=== PATIENT | male | born 1960 | race Caucasian/White ===

== ENCOUNTER 2025-02-01 08:15 | Day surgery (SDC) | payer MEDICARE, BC, SELFPAY ==
[2025-01-29 14:11] VITALS: BMI 30.1
[2025-02-01 08:36] VITALS: BP 163/97; PULSE 69; RESP 16; TEMP 36.1; O2SAT 98; BMI 29.8
[2025-02-01] MEDS: RINGERS LACTATED 500 ML 500 ML 20 ML IV (10:30)
[2025-02-01 10:44] VITALS: BP 143/72; PULSE 67; RESP 7; TEMP 36.8; O2SAT 96
[2025-02-01 10:54] VITALS: BP 131/68; PULSE 64; RESP 11; O2SAT 96
[2025-02-01 11:04] VITALS: BP 134/71; PULSE 62; RESP 16; O2SAT 97
[2025-02-01 11:14] VITALS: BP 119/73; PULSE 63; RESP 14; TEMP 36.8; O2SAT 98
--- NOTE | 2025-02-01 11:21 | SUR.PHASEII ---
1100 Pt more awake and alert. Denies pain or N/V. Abd remains soft. Indigo PO fluids.
--- NOTE | 2025-02-01 11:39 | SUR.PHASEII ---
1137 Pt assessment unchanged. No complaints. Amb with steady gait. Able to dress self. Pt and given dc instructions. Both state understanding. Pt meets dc criteria-to home.
== END 2025-02-01 11:35 | disposition home or self-care (01) ==
PROVIDERS: PCP Family Medicine; Referring Provider Specialist; Visit Provider Specialist
PROC: 0DBE8ZX Excision of Large Intestine, Via Natural or Artificial Opening Endoscopic, Diagnostic (ICD-10-PCS; CPT 45380; principal; 2025-02-01 11:45)
DX: Z08 Encounter for follow-up examination after completed treatment for malignant neoplasm (principal); K64.1 Second degree hemorrhoids; I10 Essential (primary) hypertension; Z85.89 Personal history of malignant neoplasm of other organs and systems; Z79.899 Other long term (current) drug therapy; Z98.0 Intestinal bypass and anastomosis status; D12.8 Benign neoplasm of rectum
CPT/HCPCS: 45385; 45380; 80053; A4649; J7120